=== PATIENT | female | born 1975 | race African-American/Black ===

== ENCOUNTER 2017-07-03 20:13 | Emergency (ER) | payer OTHER ==
--- NOTE | 2017-07-03 20:35 | ER Document Report ---
HPI - HPI Patient complains to provider of: Injured left third toe Onset: This afternoon - 2 PM Quality of pain: Throbbing Pain Level: 5 Context: 42-year-old female accidentally kicked the would part of a sofa this afternoon at 2 PM injuring her dorsal left foot. 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 Was able to wakl on her heal, took motrin at home. States she does not need any RX prescriptions. 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 IN LAST 30 DAYS: No - HEENT HEENT: Normocephalic - NECK Neck: Supple - RESPIRATORY O2 Sat by Pulse Oximetry: 98 - MUSCULOSKELETAL/EXTREMETIES Musculoskeletal/Extremeties: Tender - dorsal left foot, tender and brised 2-4 proximal phalanx, 2+ dp, Edema, Eccymosis. negative: FROM - able to flex and extend with encouragement - NEURO Level of Consciousness: Awake, Alert, Appropriate Motor/Sensory: No Motor Deficit, No Sensory Deficit - DERM Integumentary: Warm, Dry Course - Re-evaluation Re-evalutation: 07/03/17 21:03 Spiral fracture of the proximal phalanx of the middle left toe - Vital Signs Vital signs: Temp Pulse Resp BP Pulse Ox 98.1 F 75 16 138/86 H 98 07/03/17 20:18 07/03/17 20:18 07/03/17 20:18 07/03/17 20:18 07/03/17 20:18 Procedures - Immobilization Left Foot Time completed: 21:25 Immobilizer type: Post-op shoe, Other - demi tape 2-4 toes Performed by: PCT Post-Proc Neuro Vasc Exam: Normal Alignment checked and good: Yes Discharge - Discharge Clinical Impression: Fractured left middle toe Condition: Good Disposition: HOME, SELF-CARE Instructions: Demi Taping (toes) ([facility]), Fractured Toe ([facility]) Additional Instructions: tylenol and motrin for pain fracture shoe so you won't have to bend at the toe/foot joint see orthopedic doctor for follow up to monitor healing of the bone Forms: Return to Work Referrals: GINO CHA MD [ACTIVE STAFF] - Follow up in 1 week
--- NOTE | 2017-07-03 21:06 | RADIOLOGY REPORT (SQ) ---
EXAM DESCRIPTION: FOOT LEFT COMPLETE COMPLETED DATE/TIME: 07/03/2017 8:57 pm REASON FOR STUDY: injury, hit sofa COMPARISON: None. NUMBER OF VIEWS: Three views. TECHNIQUE: AP, lateral and oblique radiographic images acquired of the left foot. LIMITATIONS: None. FINDINGS: MINERALIZATION: Normal. BONES: Oblique fracture of the proximal phalanx of the 3rd toe. JOINTS: No effusions. SOFT TISSUES: No soft tissue swelling. No foreign body. OTHER: No other significant finding. IMPRESSION: OBLIQUE FRACTURE OF THE PROXIMAL PHALANX OF THE 3RD TOE. TECHNICAL DOCUMENTATION: JOB ID: [id number] [employer]- All Rights Reserved
[2017-07-03 21:31] VITALS: BP 119/84
== END 2017-07-03 21:29 | disposition home or self-care (01) ==
LOC: ER 20:13
DX: S92.512A Displaced fracture of proximal phalanx of left lesser toe(s), initial encounter for closed fracture (principal); W22.03XA Walked into furniture, initial encounter
CPT/HCPCS: 99283

== ENCOUNTER 2018-08-27 13:47 | Emergency (ER) | payer OTHER ==
--- NOTE | 2018-08-27 14:39 | ER Document Report ---
ED Medical Screen (RME) - General Chief Complaint: Rectal Bleeding Stated Complaint: RECTAL BLEEDING Time Seen by Provider: 08/27/18 14:34 Primary Care Provider: HUMBERTO DESHPANDE DO [Primary Care Provider] - Follow up as needed Notes: 43 years old female presents today with rectal bleed since this morning with a history of hemorrhoid. She also has a history of vagina polyps. No dizziness no other constitutional symptoms. TRAVEL OUTSIDE OF THE [place] IN LAST 30 DAYS: No - Related Data Allergies/Adverse Reactions: Sulfa (Sulfonamide Antibiotics) Allergy (Verified 08/27/18 13:49) sulfamethoxazole [From Bactrim] Allergy (Verified 08/27/18 13:49) trimethoprim [From Bactrim] Allergy (Verified 08/27/18 13:49) Past Medical History - Past Medical History Cardiac Medical History: Reports: Hx Hypertension Renal/ Medical History: Denies: Hx Peritoneal Dialysis Past Surgical History: Reports: Hx Hysterectomy Physical Exam - Vital signs Vitals: Temp Pulse Resp BP Pulse Ox 98.3 F 98 16 138/93 H 99 08/27/18 14:20 08/27/18 14:20 08/27/18 14:20 08/27/18 14:20 08/27/18 14:20 Course - Vital Signs Vital signs: Temp Pulse Resp BP Pulse Ox 98.3 F 98 16 138/93 H 99 08/27/18 14:20 08/27/18 14:20 08/27/18 14:20 08/27/18 14:20 08/27/18 14:20 Doctor's Discharge - Discharge Referrals: HUMBERTO DESHPANDE DO [Primary Care Provider] - Follow up as needed
[2018-08-27] MEDS ORDERED: VALACYCLOVIR HCL 500 MG TABLET PO ONE (15:45)
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
[2018-08-27 15:57] VITALS: BP 143/96
== END 2018-08-27 15:59 | disposition home or self-care (01) ==
LOC: ER 13:47
DX: K64.4 Residual hemorrhoidal skin tags (principal); L98.499 Non-pressure chronic ulcer of skin of other sites with unspecified severity; I10 Essential (primary) hypertension
CPT/HCPCS: 87250; 99283

== ENCOUNTER 2019-04-10 16:37 | Emergency (ER) | payer OTHER ==
--- NOTE | 2019-04-10 17:00 | ER Document Report ---
ED Medical Screen (RME) - General Chief Complaint: Dizziness Stated Complaint: VOMITING Time Seen by Provider: 04/10/19 16:58 Primary Care Provider: HUMBERTO DESHPANDE DO [Primary Care Provider] - Follow up as needed TRAVEL OUTSIDE OF THE [place] IN LAST 30 DAYS: No - HPI Notes: 04/10/19 16:59 Patient is a 43-year-old female who presents complaining of nausea, vomiting, dizziness, fatigue, mild headache, mild chest pain that began today. Patient states that she did have a syncopal episode from a standing position that was witnessed by her friends and she did hit the floor and states that she may have hit her head in the process. Patient is not having any significant pain to any particular spot on her head otherwise. She has a history of migraines and hypertension, but does not take medicine for it. Patient states that the chest pain does not radiate. Not associated with shortness of breath. No fever. No neck pain. She has not been having any belly pain. I have treated and performed a rapid initial assessment of this patient. A comprehensive ED assessment and evaluation of the patient, analysis of test results and completion of medical decision making process will be conducted by additional ED providers. PHYSICAL EXAMINATION: GENERAL: Well-appearing, well-nourished and in no acute distress. A&Ox4. Answers questions appropriately. Neuro: Cranial nerves grossly intact, NIH 0, GCS 15. Lungs: CTAB Heart: RRR - Related Data Allergies/Adverse Reactions: Sulfa (Sulfonamide Antibiotics) Allergy (Verified 04/10/19 16:55) sulfamethoxazole [From Bactrim] Allergy (Verified 04/10/19 16:55) trimethoprim [From Bactrim] Allergy (Verified 04/10/19 16:55) Past Medical History - Past Medical History Cardiac Medical History: Reports: Hx Hypertension Renal/ Medical History: Denies: Hx Peritoneal Dialysis Past Surgical History: Reports: Hx Hysterectomy Physical Exam - Vital signs Vitals: Temp Pulse Resp BP Pulse Ox 98.8 F 102 H 18 134/85 H 98 10 16:42 04/10/19 16:42 04/10/19 16:42 04/10/19 16:42 04/10/19 16:42 Course - Vital Signs Vital signs: Temp Pulse Resp BP Pulse Ox 98.8 F 102 H 18 134/85 H 98 1012/19 16:42 04/10/19 16:42 04/10/19 16:42 04/10/19 16:42 04/10/19 16:42 Doctor's Discharge - Discharge Referrals: HUMBERTO DESHPANDE, [Primary Care Provider] - Follow up as needed
[2019-04-10] MEDS ORDERED: ONDANSETRON HCL INJ/PF 4 MG/2 ML SDV IV ONE (17:01)
[2019-04-10] MEDS ORDERED: MECLIZINE HCL 25 MG TABLET PO ONE (17:01)
[2019-04-10] MEDS: NORMAL SALINE 1000 ML 1,000 ML IV PRN ×2 (18:10→18:12)
--- NOTE | 2019-04-10 18:19 | RADIOLOGY REPORT (SQ) ---
EXAM DESCRIPTION: CHEST SINGLE VIEW COMPLETED DATE/TIME: 04/10/2019 6:10 pm REASON FOR STUDY: CP COMPARISON: None. EXAM PARAMETERS: NUMBER OF VIEWS: One view. TECHNIQUE: Single frontal radiographic view of the chest acquired. RADIATION DOSE: NA LIMITATIONS: None. FINDINGS: LUNGS AND PLEURA: No opacities, masses or pneumothorax. No pleural effusion. MEDIASTINUM AND HILAR STRUCTURES: No masses. Contour normal. HEART AND VASCULAR STRUCTURES: Heart normal in size. Normal vasculature. BONES: No acute findings. Incidental note is made of dextroconvex lateral curvature of the thoracic spine. HARDWARE: None in the chest. OTHER: No other significant finding. IMPRESSION: NO ACUTE RADIOGRAPHIC FINDING IN THE CHEST. TECHNICAL DOCUMENTATION: JOB ID: [id number] [employer]- All Rights Reserved Reading location - IP/workstation name: [email or web address]
--- NOTE | 2019-04-10 18:44 | RADIOLOGY REPORT (SQ) ---
EXAM DESCRIPTION: CT HEAD WITHOUT COMPLETED DATE/TIME: 04/10/2019 6:23 pm REASON FOR STUDY: dizzy, head injury COMPARISON: None. TECHNIQUE: Axial images acquired through the brain without intravenous contrast. Images reviewed wi th bone, brain and subdural windows. Additional sagittal and coronal reconstructions were generated. Images stored on PACS. All CT scanners at this facility use dose modulation, iterative reconstruction, and/or weight based d osing when appropriate to reduce radiation dose to as low as reasonably achievable (ALARA). [facility]: Dose Right [facility]: CareDose [facility]: Dose Right [facility]: Teradose 4D [facility]: Smart HangIt RADIATION DOSE: CT Rad equipment meets quality standard of care and radiation dose reduction techniq ues were employed. CTDIvol: 53.2 mGy. DLP: 937 mGy-cm. mGy. LIMITATIONS: None. FINDINGS: VENTRICLES: Normal size and contour. CEREBRUM: No masses. No hemorrhage. No midline shift. No evidence for acute infarction. Normal gra y/white matter differentiation. No areas of low density in the white matter. CEREBELLUM: No masses. No hemorrhage. No alteration of density. No evidence for acute infarction. EXTRAAXIAL SPACES: No fluid collections. No masses. ORBITS AND GLOBE: No intra- or extraconal masses. Normal contour of globe without masses. CALVARIUM: No fracture. PARANASAL SINUSES: No fluid or mucosal thickening. SOFT TISSUES: No mass or hematoma. OTHER: No other significant finding. IMPRESSION: No evidence of calvarial injury or intracranial hemorrhage. EVIDENCE OF ACUTE STROKE: NO. COMMENT: Quality ID # [id number]: Final reports with documentation of one or more dose reduction techniques (e.g., Automated exposure control, adjustment of the mA and/or kV according to patient size, use of iterative reconstruction technique) TECHNICAL DOCUMENTATION: JOB ID: [id number] [employer]- All Rights Reserved Reading location - IP/workstation name: [email or web address]
[2019-04-10 19:47] LABS: ABSOLUTE EOSINOPHILS # (AUTO) 0.1 10^3/uL (0.0-0.6); ABSOLUTE LYMPHOCYTES (AUTO) 2.1 10^3/uL (0.5-4.7); ABSOLUTE MONOCYTES (AUTO) 0.6 10^3/uL (0.1-1.4); ABSOLUTE NEUT (AUTO) 2.6 10^3/uL (1.7-8.2); BASOPHILS % (AUTO) 0.4 % (0-2); EOSINOPHILS % (AUTO) 1.8 % (0-6); HEMATOCRIT 35.6 % (36.0-47.0); HEMOGLOBIN 11.8 g/dL (12.0-15.5); LYMPHOCYTES % (AUTO) 38.4 % (13-45); MEAN CORPUSCULAR HEMOGLOBIN 29.8 pg (27.0-33.4); MEAN CORPUSCULAR HGB CONC 33.1 g/dL (32.0-36.0); MEAN CORPUSCULAR VOLUME 90 fl (80-97); PLATELET COUNT 268 10^3/uL (150-450); RED BLOOD COUNT 3.96 10^6/uL (3.72-5.28); RED CELL DISTRIBUTION WIDTH 13.6 % (11.5-14.0); SEGMENTED NEUTROPHILS % (AUTO) 48.4 % (42-78); TOTAL CELLS COUNTED % (AUTO) 100 %; WHITE BLOOD COUNT 5.4 10^3/uL (4.0-10.5)
[2019-04-10 19:49] LABS: INTERNATIONAL RATION (INR) 1.13; PARTIAL THROMBOPLASTIN TIME 29.8 SEC (23.5-35.8); PROTHROMBIN TIME 14.6 SEC (11.4-15.4)
[2019-04-10 19:55] LABS: ALBUMIN 3.7 g/dL (3.5-5.0); ALKALINE PHOSPHATASE 70 U/L (38-126); ANION GAP 7 (5-19); ASPARTATE AMINO TRANSFERASE 23 U/L (14-36); BILIRUBIN,DIRECT 0.1 mg/dL (0.0-0.4); BILIRUBIN,TOTAL 0.5 mg/dL (0.2-1.3); BLOOD UREA NITROGEN 13 mg/dL (7-20); CALCIUM 8.7 mg/dL (8.4-10.2); CARBON DIOXIDE 26 mmol/L (22-30); CHLORIDE 108 mmol/L (98-107); GLUCOSE 95 mg/dL (75-110); POTASSIUM 3.8 mmol/L (3.6-5.0); TOTAL PROTEIN 6.5 g/dL (6.3-8.2)
[2019-04-10] MEDS ORDERED: ACETAMINOPHEN 325 MG TABLET PO ONE (20:23)
[2019-04-10 21:03] LABS: APPEARANCE,URINE SLIGHTLY-CLOUDY; BILIRUBIN,URINE NEGATIVE (NEGATIVE); COLOR,URINE YELLOW; GLUCOSE, URINE NEGATIVE (NEGATIVE); KETONES,URINE NEGATIVE (NEGATIVE); PROTEIN,URINE NEGATIVE (NEGATIVE); URINE SPECIFIC GRAVITY 1.015
--- NOTE | 2019-04-10 21:25 | EKG REPORT ---
SEVERITY:- NORMAL ECG - SINUS RHYTHM : Confirmed by: Zafar Jefferson MD 10-Apr-2019 21:24:16
[2019-04-10] MEDS ORDERED: ONDANSETRON ODT 4 MG TAB (6 TAB/ER DISP) PO PRN (21:50)
--- NOTE | 2019-04-10 21:56 | ER Document Report ---
ED General - General Chief Complaint: Dizziness Stated Complaint: VOMITING Time Seen by Provider: 04/10/19 16:58 Primary Care Provider: HUMBERTO DESHPANDE DO [Primary Care Provider] - Follow up as needed TRAVEL OUTSIDE OF THE [place] IN LAST 30 DAYS: No - HPI Notes: Patient is a 43-year-old female who presents emergency department for evaluation of multiple complaints. She states that she was dizzy, had nausea and vomiting earlier. Her emesis was nonbloody, nonbilious. She states she then had a syncopal episode, witnessed by friends. She was not out for long. She did hit her head but denies loss of consciousness. Patient also states she had a few minutes of chest pain earlier. She does cannot describe it for me other than it hurts. It happened while she was at rest. She denies any associated symptoms worsening with that. Normal bowel movements. No urinary symptoms. No fevers or chills. She just feels weak all over. - Related Data Allergies/Adverse Reactions: Sulfa (Sulfonamide Antibiotics) Allergy (Verified 04/10/19 16:55) sulfamethoxazole [From Bactrim] Allergy (Verified 04/10/19 16:55) trimethoprim [From Bactrim] Allergy (Verified 04/10/19 16:55) Past Medical History - General Information source: Patient - Social History Smoking Status: Never Smoker Family History: Reviewed & Not Pertinent Patient has suicidal ideation: No Patient has homicidal ideation: No - Past Medical History Cardiac Medical History: Reports: Hx Hypertension Renal/ Medical History: Denies: Hx Peritoneal Dialysis Past Surgical History: Reports: Hx Hysterectomy Review of Systems - Review of Systems Constitutional: See HPI EENT: No symptoms reported Cardiovascular: See HPI Respiratory: No symptoms reported Gastrointestinal: See HPI Genitourinary: No symptoms reported Musculoskeletal: No symptoms reported Skin: No symptoms reported Neurological/Psychological: See HPI Physical Exam - Vital signs Vitals: Temp Pulse Resp BP Pulse Ox 98.8 F 102 H 18 134/85 H 98 04/10/19 16:42 04/10/19 16:42 04/10/19 16:42 04/10/19 16:42 04/10/19 16:42 - Notes Notes: Vital signs reviewed, please refer to chart. Head is normocephalic, atraumatic. Pupils equal round, reactive to light. Neck is supple without meningismus. Heart is regular rate and rhythm. Lungs are clear to auscultation bilaterally. Abdomen is soft, nontender, normoactive bowel sounds throughout. Extremities without cyanosis, clubbing. Posterior calves are nontender. Peripheral pulses are equal. Skin is warm and dry. Patient is awake, alert, oriented x3. Cranial nerves II - XII are grossly intact without focal neurological deficits. Strength is plus 5 out of 5 bilateral upper and lower extremities. Sensation is intact. Reflexes symmetrical. Intact [id number], rapid alternating movements, [id number]. Course - Re-evaluation Re-evalutation: 04/10/19 21:52 Patient presents to the emergency department for evaluation of syncope, chest pain, nausea, vomiting, generalized weakness. Laboratory investigations and imaging is obtained and ordered through triage. Laboratory investigations failed to reveal any significant abnormality, with the exception of leukocyte esterase in her urine. The patient does not have any urinary symptoms. Urine sent for culture. Otherwise telemetry revealed normal sinus rhythm, no ectopy. She has only minimal risk factors for coronary artery disease, and her pain certainly was not typical. Her cardiac enzymes are negative. We will send her home with Zoan and close follow-up. She is to return to the ED with worsening or concerning symptoms of any sort. - Vital Signs Vital signs: Temp Pulse Resp BP Pulse Ox 98.0 F 73 20 120/81 100 04/10/19 22:48 04/10/19 22:48 04/10/19 22:48 04/10/19 22:48 04/10/19 22:48 - Laboratory Result Diagrams: 04/10/19 19:25 04/10/19 19:25 Laboratory results interpreted by me: 04/10/19 04/10/19 04/10/19 19:25 19:25 20:30 Hgb 11.8 L Hct 35.6 L Chloride 108 H Urine Blood SMALL H Urine Urobilinogen 2.0 H Leukocyte Esterase Rfl LARGE H - Diagnostic Test Radiology reviewed: Image reviewed, Reports reviewed Radiology results interpreted by me: 04/10/19 21:54 Chest X-Ray 04/10/19 17:00 IMPRESSION: NO ACUTE RADIOGRAPHIC FINDING IN THE CHEST. Head CT 04/10/19 17:00 IMPRESSION: No evidence of calvarial injury or intracranial hemorrhage. EVIDENCE OF ACUTE STROKE: NO. - EKG Interpretation by Me Additional EKG results interpreted by me: 04/10/19 21:54 Sinus mechanism with rate of 89 bpm. Normal axis and intervals, no acute ST changes concerning for ischemia or infarction. No old studies available for comparison. Discharge - Discharge Clinical Impression: Dizziness Syncope Qualifiers: Syncope type: unspecified Qualified Code(s): R55 - Syncope and collapse Chest pain Qualifiers: Chest pain type: unspecified Qualified Code(s): R07.9 - Chest pain, unspecified Nausea and vomiting Qualifiers: Vomiting type: unspecified Vomiting Intractability: non-intractable Qualified Code(s): R11.2 - Nausea with vomiting, unspecified Condition: Fair Disposition: HOME, SELF-CARE Instructions: Antinausea Medication ([facility]), Dizziness ([facility]), Intravenous (IV) Fluids ([facility]) Additional Instructions: No clear cause was found for your symptoms today. Zofran as needed for nausea. Follow-up with your primary care provider on Friday. Your urine is being sent f or culture, if any bacteria grow you will be contacted. Return to the emergency department with worsening or new concerning symptoms of any sort. Referrals: HUMBERTO DESHPANDE, DO [Primary Care Provider] - Follow up as needed
[2019-04-10 22:49] VITALS: BP 120/81
== END 2019-04-10 22:50 | disposition home or self-care (01) ==
LOC: ER 16:37
DX: R07.9 Chest pain, unspecified (principal); R11.2 Nausea with vomiting, unspecified; R42 Dizziness and giddiness; R55 Syncope and collapse; I10 Essential (primary) hypertension
CPT/HCPCS: 93005; 36415; 87086; 85025; 85610; 85730; 81025; 80053; 81001; 84484; 71045; 70450; 93010; J2405; J7030

== ENCOUNTER 2019-08-10 17:26 | Emergency (ER) | payer OTHER ==
--- NOTE | 2019-08-10 19:36 | ER Document Report ---
ED Medical Screen (RME) - General Chief Complaint: Rectal Bleeding Stated Complaint: RECTAL BLEEDING Time Seen by Provider: 08/10/19 19:31 Primary Care Provider: HUMBERTO DESHPANDE DO [Primary Care Provider] - Follow up as needed Mode of Arrival: Ambulatory Information source: Patient Notes: Patient presents emergency department with complaints of rectal bleeding for months worse yesterday. Reports history of hemorrhoids. Reports she is been told before it was bleeding hemorrhoids. She reports blood in the water after bowel movement. Reports her stools are orange-colored. Patient also complains of right lower quad that started yesterday. Denies fever vomiting diarrhea. I have greeted and performed a rapid initial assessment of this patient. A comprehensive ED assessment and evaluation of the patient, analysis of test results and completion of the medical decision making process will be conducted by additional ED providers. TRAVEL OUTSIDE OF THE [place] IN LAST 30 DAYS: No - Related Data Allergies/Adverse Reactions: Sulfa (Sulfonamide Antibiotics) Allergy (Verified 08/10/19 19:24) sulfamethoxazole [From Bactrim] Allergy (Verified 08/10/19 19:24) trimethoprim [From Bactrim] Allergy (Verified 08/10/19 19:24) Past Medical History - Social History Chew tobacco use (# tins/day): No Frequency of alcohol use: None Drug Abuse: None - Past Medical History Cardiac Medical History: Reports: Hx Hypertension Renal/ Medical History: Denies: Hx Peritoneal Dialysis Past Surgical History: Reports: Hx Hysterectomy Physical Exam - Vital signs Vitals: Temp Pulse Resp BP Pulse Ox 98.2 F 85 20 130/85 H 99 08/10/19 17:36 08/10/19 17:36 08/10/19 17:36 08/10/19 17:36 08/10/19 17:36 Course - Vital Signs Vital signs: Temp Pulse Resp BP Pulse Ox 98.2 F 85 20 130/85 H 99 08/10/19 17:36 08/10/19 17:36 08/10/19 17:36 08/10/19 17:36 08/10/19 17:36 Doctor's Discharge - Discharge Referrals: HUMBERTO DESHPANDE DO [Primary Care Provider] - Follow up as needed
[2019-08-10 20:13] LABS: ABSOLUTE EOSINOPHILS # (AUTO) 0.1 10^3/uL (0.0-0.6); ABSOLUTE LYMPHOCYTES (AUTO) 1.8 10^3/uL (0.5-4.7); ABSOLUTE MONOCYTES (AUTO) 0.4 10^3/uL (0.1-1.4); ABSOLUTE NEUT (AUTO) 3.1 10^3/uL (1.7-8.2); BASOPHILS % (AUTO) 0.7 % (0-2); EOSINOPHILS % (AUTO) 2.2 % (0-6); HEMATOCRIT 37.7 % (36.0-47.0); HEMOGLOBIN 12.9 g/dL (12.0-15.5); LYMPHOCYTES % (AUTO) 32.4 % (13-45); MEAN CORPUSCULAR HEMOGLOBIN 30.7 pg (27.0-33.4); MEAN CORPUSCULAR HGB CONC 34.2 g/dL (32.0-36.0); MEAN CORPUSCULAR VOLUME 90 fl (80-97); MONOCYTES % (AUTO) 7.4 % (3-13); PLATELET COUNT 280 10^3/uL (150-450); RED CELL DISTRIBUTION WIDTH 13.9 % (11.5-14.0); SEGMENTED NEUTROPHILS % (AUTO) 57.3 % (42-78); TOTAL CELLS COUNTED % (AUTO) 100 %; WHITE BLOOD COUNT 5.4 10^3/uL (4.0-10.5)
[2019-08-10 20:24] LABS: APPEARANCE,URINE SLIGHTLY-CLOUDY; BILIRUBIN,URINE NEGATIVE (NEGATIVE); COLOR,URINE YELLOW; GLUCOSE, URINE NEGATIVE (NEGATIVE); KETONES,URINE NEGATIVE (NEGATIVE); LEUKOCYTE ESTERASE,URINE NEGATIVE (NEGATIVE); NITRITE,URINE NEGATIVE (NEGATIVE); PROTEIN,URINE 30 mg/dL (NEGATIVE); URINE SPECIFIC GRAVITY 1.026
[2019-08-10 20:38] LABS: ALBUMIN 4.6 g/dL (3.5-5.0); ALKALINE PHOSPHATASE 86 U/L (38-126); ANION GAP 9 (5-19); ASPARTATE AMINO TRANSFERASE 24 U/L (14-36); BILIRUBIN,DIRECT 0.2 mg/dL (0.0-0.4); BILIRUBIN,TOTAL 0.5 mg/dL (0.2-1.3); BLOOD UREA NITROGEN 22 mg/dL (7-20); CARBON DIOXIDE 31 mmol/L (22-30); CHLORIDE 102 mmol/L (98-107); GLUCOSE 82 mg/dL (75-110); POTASSIUM 3.8 mmol/L (3.6-5.0)
[2019-08-10] MEDS ORDERED: NORMAL SALINE 1000 ML 1,000 ML IV ONE (23:51)
[2019-08-11 00:05] LABS: INTERNATIONAL RATION (INR) 0.97; PROTHROMBIN TIME 12.8 SEC (11.4-15.4)
--- NOTE | 2019-08-11 02:46 | RADIOLOGY REPORT (SQ) ---
EXAM: CT Abdomen and Pelvis With Intravenous Contrast EXAM DATE/TIME: 08/11/2019 2:08 AM CLINICAL HISTORY: The patient is 44 years old and is Female; rectal bleed TECHNIQUE: Axial computed tomography images of the abdomen and pelvis with intravenous contrast. Sagittal and coronal reformatted images were created and reviewed. Delayed images were obtained. Oral contrast was administered. This CT exam was performed using one or more of the following dose reduction techniques: automated exposure control, adjustment of the mA and/or kV according to patient size, and/or use of iterative reconstruction technique. COMPARISON: CT abdomen pelvis from 04/29/2011 FINDINGS: LUNG BASES: Unremarkable. No mass. No consolidation. ABDOMEN: LIVER: Unremarkable. No obvious mass. GALLBLADDER AND BILE DUCTS: Unremarkable. No calcified stones. No significant biliary ductal dilatation. PANCREAS: Unremarkable. No ductal dilation. No obvious mass. SPLEEN: Unremarkable. No splenomegaly. ADRENALS: Unremarkable. No adrenal nodules or masses identified. KIDNEYS AND URETERS: Unremarkable. No solid mass. No hydronephrosis. STOMACH AND BOWEL: No evidence of bowel obstruction. No significant bowel wall thickening appreciated. PELVIS: APPENDIX: The appendix is unremarkable. BLADDER: Unremarkable. No obvious mass. REPRODUCTIVE: The patient is status post hysterectomy. ABDOMEN and PELVIS: INTRAPERITONEAL SPACE: Unremarkable. No free air. No significant fluid collection. BONES/JOINTS: No acute fracture. No dislocation. SOFT TISSUES: No significant abnormalities in the superficial soft tissues. VASCULATURE: Unremarkable. No abdominal aortic aneurysm. LYMPH NODES: No significant lymph node enlargement. IMPRESSION: No acute findings in the abdomen or pelvis.
--- NOTE | 2019-08-11 04:29 | ER Document Report ---
Entered by RAYMOND AKBAR SCRIBE 08/11/19 0413 Acting as scribe for:PHAN HENDRICKSON MD ED General - General Chief Complaint: Rectal Bleeding Stated Complaint: RECTAL BLEEDING Time Seen by Provider: 08/10/19 19:31 Primary Care Provider: HUMBERTO DESHPANDE DO [NO LOCAL MD] - Follow up as needed Mode of Arrival: Ambulatory Information source: Patient Notes: 44-year-old female presents to the emergency department complaining of rectal bleeding. Patient explains that she has had bright red rectal bleeding for more than 6 months. Patient states that her rectal bleeding has gotten a lot worse and "there is a lot" of blood. Patient reports that she was told by the [facility] on Friday that she does not have hemorrhoids. Patient states that she has never had hemorrhoids. Patient reports that she has pain with bowel movements but denies straining. Patient states that her bowel movements have been "brown, orange, green" and denies black stool. TRAVEL OUTSIDE OF THE [place] IN LAST 30 DAYS: No - Related Data Allergies/Adverse Reactions: Sulfa (Sulfonamide Antibiotics) Allergy (Verified 08/10/19 19:24) sulfamethoxazole [From Bactrim] Allergy (Verified 08/10/19 19:24) trimethoprim [From Bactrim] Allergy (Verified 08/10/19 19:24) Past Medical History - General Information source: Patient - Social History Smoking Status: Never Smoker Cigarette use (# per day): No Chew tobacco use (# tins/day): No Frequency of alcohol use: None Drug Abuse: None Family History: Reviewed & Not Pertinent Patient has suicidal ideation: No Patient has homicidal ideation: No - Past Medical History Cardiac Medical History: Reports: Hx Hypertension Past Surgical History: Reports: Hx Hysterectomy Review of Systems - Review of Systems Constitutional: denies: Fever EENT: No symptoms reported Cardiovascular: No symptoms reported Respiratory: No symptoms reported Gastrointestinal: See HPI, Abdominal pain, Rectal bleeding. denies: Black stools Genitourinary: No symptoms reported Female Genitourinary: No symptoms reported Musculoskeletal: No symptoms reported Skin: No symptoms reported Hematologic/Lymphatic: No symptoms reported Neurological/Psychological: No symptoms reported -: Yes All other systems reviewed and negative Physical Exam - Vital signs Vitals: Temp Pulse Resp BP Pulse Ox 98.2 F 85 20 130/85 H 99 08/10/19 17:36 08/10/19 17:36 08/10/19 17:36 08/10/19 17:36 08/10/19 17:36 - Notes Notes: Physical Exam: General: Alert, appears well. HEENT: Normocephalic. Atraumatic. PERRL. Extraocular movements intact. Oropharynx clear. Neck: Supple. Non-tender. Respiratory: No respiratory distress. Clear and equal breath sounds bilaterally. Cardiovascular: Regular rate and rhythm. Abdominal: Normal Inspection. Non-tender. No distension. Normal Bowel Sounds. Gastrointestinal: Tight sphincter. External hemorrhoids tags with no active bleeding. Tenderness on exam. [place]/red mucous found in rectum. Back: No gross abnormalities. Extremities: Moves all four extremities. Upper extremities: Normal inspection. Normal ROM. Lower extremities: Normal inspection. No edema. Normal ROM. Neurological: Normal cognition. AAOx4. Normal speech. Psychological: Normal affect. Normal Mood. Skin: Warm. Dry. Normal color. Course - Re-evaluation Re-evalutation: 08/11/19 04:14 Patient resting comfortably not showing any signs of distress. There is been no spontaneous rectal bleeding going on at this time. With patient her CT results which disclosed no apparent obvious reason for her lower GI bleed. 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 And the plan was for her to follow-up with gastroenterology. My plan is to place patient on bulk laxative and stool softeners and Anusol HC rectal suppositories. - Vital Signs Vital signs: Temp Pulse Resp BP Pulse Ox 98.4 F 75 16 134/90 H 98 08/11/19 03:00 08/11/19 03:00 08/11/19 03:00 08/11/19 03:00 08/11/19 03:00 - Laboratory Result Diagrams: 08/10/19 20:02 08/10/19 20:02 Laboratory results interpreted by me: 08/10/19 08/10/19 20:02 20:02 Carbon Dioxide 31 H BUN 22 H Urine Protein 30 H Urine Urobilinogen 2.0 H Urine Ascorbic Acid 40 H - Diagnostic Test Radiology reviewed: Image reviewed, Reports reviewed Discharge - Discharge Clinical Impression: Lower GI bleed, Abdominal pain Condition: Stable Disposition: HOME, SELF-CARE Instructions: Abdominal Pain ([facility]), Bulk Laxatives Additional Instructions: You have a lower GI bleed associated with abdominal pain. Today's CT scan does not disclose any objective evidence for the lower GI bleed you have. More commonly things have been more common and hemorrhoids or anal fissure may be the cause of this bleed. As you know you are in process of scheduling yourself with a GI specialist for follow-up. Plan today's apace placed you on Anusol HC suppositories bulk laxative stool softeners. Avoid NSAIDs or any aspirin. Of course return to the emergency department if you have any further complications of your lower GI bleed. Prescriptions: Hydrocortisone Acetate [Anusol Hc 25 mg Supp.rect] 1 supp.rect OR BID #14 supp.rect Docusate Sodium [Colace 100 mg Capsule] 100 mg PO DAILY #30 capsule Referrals: HUMBERTO DESHPANDE, [NO LOCAL MD] - Follow up as needed I personally performed the services described in the documentation, reviewed and edited the documentation which was dictated to the scribe in my presence, and it accurately records my words and actions.
[2019-08-11 04:43] VITALS: BP 134/82
== END 2019-08-11 04:38 | disposition home or self-care (01) ==
LOC: ER 17:26
DX: K92.2 Gastrointestinal hemorrhage, unspecified (principal); R10.9 Unspecified abdominal pain; K64.4 Residual hemorrhoidal skin tags; I10 Essential (primary) hypertension; Z88.2 Allergy status to sulfonamides; Z88.1 Allergy status to other antibiotic agents
CPT/HCPCS: 36415; 74177; 80053; 81001; 83605; 83690; 85025; 85610; 85730; 96360; 99285; J7030